=== PATIENT | female | born 1955 | race Caucasian/White ===

== ENCOUNTER 2018-12-21 12:21 | Emergency (ER) | payer MEDICARE, OTHER ==
[2018-12-21] MEDS: ACETAMINOPHEN 500 MG TAB PO (13:25)
== END 2018-12-21 14:09 | disposition home or self-care (01) ==
LOC: FTE 12:21
DX: M25.562 Pain in left knee (principal)
CPT/HCPCS: 73562; 99283-25

== ENCOUNTER 2019-06-11 20:10 | Emergency (ER) | payer MEDICARE, OTHER ==
[2019-06-11] MEDS: DEXAMETHASONE 10 MG/ML 1 ML INJ IM (20:53)
[2019-06-11] MEDS: KETOROLAC 30 MG INJ IM (20:54)
== END 2019-06-11 21:21 | disposition home or self-care (01) ==
LOC: FTE 20:10
DX: M10.9 Gout, unspecified (principal); I10 Essential (primary) hypertension; Z85.3 Personal history of malignant neoplasm of breast
CPT/HCPCS: 96372; 99284-25

== ENCOUNTER 2019-06-20 20:32 | Emergency (ER) | payer MEDICARE, OTHER ==
[2019-06-20] MEDS: IBUPROFEN 200 MG TAB PO (22:14)
[2019-06-20] MEDS: ACETAMINOPHEN 500 MG TAB PO (22:14)
== END 2019-06-20 22:28 | disposition home or self-care (01) ==
LOC: FTE 20:32
DX: M17.12 Unilateral primary osteoarthritis, left knee (principal); I10 Essential (primary) hypertension; Z85.3 Personal history of malignant neoplasm of breast
CPT/HCPCS: 99283